=== PATIENT | male | born 1960 | race American Indian/Alaskan Native ===

== ENCOUNTER 2018-12-05 14:21 | Emergency (ER) | payer SELFPAY ==
--- NOTE | 2018-12-05 14:44 | Event Note ---
ED Screening Note ED Screening Note: pt presents with high blood pressure pt states that he has not had his blood pressure medication in 2 years pt believes he was previously on amlodipine 10 mg pt denies any MABRY, vision changes, numbness, weakness This initial assessment/diagnostic orders/clinical plan/treatment(s) is/are subject to change based on patients health status, clinical progression and re- assessment by fellow clinical providers in the ED. Further treatment and workup at subsequent clinical providers discretion. Patient/guardian urged not to elope from the ED as their condition may be serious if not clinically assessed and managed.
--- NOTE | 2018-12-05 16:18 | Emergency Department Report ---
ED General Adult HPI - General Chief complaint: High BP Stated complaint: HBP Time Seen by Provider: 12/05/18 14:40 Source: patient Mode of arrival: Ambulatory Limitations: No Limitations - History of Present Illness Initial comments: Mr. Swenson is a very pleasant 58-year-old male with history of hypertension for several years. He has been unemployed without healthcare. Consequently he has been without antihypertensive medication in quite some time. He formerly took amlodipine. He has a new job at [employer]. During employment physical, Blood pressure was elevated, the readings 186/120, 178/112. He is currently symptom-free. He requires a letter of treatment, recommendation and documentation for clearance to go for with employment process. -: unknown (has not taken medication for blood pressure in over 10 years) Consistency: other (has not taken blood pressure medication in several years.) Improves with: none Worsens with: none Associated Symptoms: denies other symptoms - Related Data Previous Rx's Medication Instructions Recorded Last Taken Type amLODIPine [Norvasc] 10 mg PO DAILY 90 Days #90 tab 12/05/18 Unknown Rx hydroCHLOROthiazide [HCTZ] 25 mg PO QDAY 90 Days #90 tablet 12/05/18 Unknown Rx Allergies Allergy/AdvReac Type Severity Reaction Status Date / Time No Known Allergies Allergy Unverified 12/05/18 14:25 ED Review of Systems ROS: Stated complaint: HBP Other details as noted in HPI Comment: All other systems reviewed and negative Constitutional: denies: fever, malaise Respiratory: denies: cough Cardiovascular: denies: chest pain Gastrointestinal: denies: abdominal pain ED Past Medical Hx - Past Medical History Previous Medical History?: Yes Hx Hypertension: Yes - Surgical History Past Surgical History?: No - Social History Smoking Status: Current Every Day Smoker Substance Use Type: None - Medications Home Medications: Home Medications Medication Instructions Recorded Confirmed Last Taken Type amLODIPine [Norvasc] 10 mg PO DAILY 90 Days #90 tab 12/05/18 Unknown Rx hydroCHLOROthiazide [HCTZ] 25 mg PO QDAY 90 Days #90 tablet 12/05/18 Unknown Rx ED Physical Exam - General Limitations: No Limitations General appearance: alert, in no apparent distress - Head Head exam: Present: atraumatic, normocephalic - Eye Eye exam: Present: normal appearance - ENT ENT exam: Present: mucous membranes moist - Neck Neck exam: Present: normal inspection, full ROM - Respiratory Respiratory exam: Present: normal lung sounds bilaterally. Absent: respiratory distress, wheezes, rales, rhonchi - Cardiovascular Cardiovascular Exam: Present: regular rate, normal rhythm, normal heart sounds. Absent: systolic murmur, diastolic murmur, rubs, gallop - GI/Abdominal GI/Abdominal exam: Present: soft, normal bowel sounds. Absent: distended, tenderness, guarding, rebound - Extremities Exam Extremities exam: Present: normal inspection - Back Exam Back exam: Present: normal inspection - Neurological Exam Neurological exam: Present: alert, oriented X3 - Psychiatric Psychiatric exam: Present: normal affect, normal mood - Skin Skin exam: Present: warm, dry, intact, normal color. Absent: rash ED Course Vital Signs 12/05/18 14:41 Temperature 97.9 F Pulse Rate 92 H Respiratory 18 Rate Blood Pressure 190/129 O2 Sat by Pulse 98 Oximetry ED Medical Decision Making - Medical Decision Making Mr. Swenson is a very pleasant gentleman who presents with hypertensive urgency, asymptomatic. I have prescribed amlodipine and hydrochlorothiazide. I also faxed letter to employee health services of his new employer completed with treatment recommendations and clearance for employment. Critical care attestation.: If time is entered above; I have spent that time in minutes in the direct care of this critically ill patient, excluding procedure time. ED Disposition Clinical Impression: Asymptomatic hypertensive urgency Disposition: DC-01 TO HOME OR SELFCARE Is pt being admited?: No Does the pt Need Aspirin: No Condition: Stable Instructions: Hypertension (ED) Prescriptions: hydroCHLOROthiazide [HCTZ] 25 mg PO QDAY 90 Days #90 tablet amLODIPine [Norvasc] 10 mg PO DAILY 90 Days #90 tab Referrals: GIANFRANCO FERNANDES MD [Primary Care Provider] - 3-5 Days
[2018-12-05] MEDS ORDERED: NORMODYNE PO ONE (16:29)
[2018-12-05] MEDS ORDERED: CATAPRES PO ONE (17:14)
[2018-12-05 18:13] VITALS: BP 147/100
== END 2018-12-05 18:17 | disposition home or self-care (01) ==
LOC: ED 14:21
DX: I16.0 Hypertensive urgency (principal); I10 Essential (primary) hypertension; F17.200 Nicotine dependence, unspecified, uncomplicated; Z79.899 Other long term (current) drug therapy

== ENCOUNTER 2019-06-05 12:30 | Observation (INO) | payer OTHER ==
--- NOTE | 2019-06-05 13:14 | Emergency Department Report ---
Blank Doc - Documentation Documentation: 58-year-old male that presents with epigastric pain with chest pains. Stated has sensation of foreign body in the chest. This initial assessment/diagnostic orders/clinical plan/treatment(s) is/are subject to change based on patient's health status, clinical progression and re- assessment by fellow clinical providers in the ED. Further treatment and workup at subsequent clinical providers discretion. Patient/guardians urged not to elope from the ED as their condition may be serious if not clinically assessed and managed. Initial orders include: 1- Patient sent to MAIN ED for further evaluation and treatment 2- labs 3- EKG
--- NOTE | 2019-06-05 14:17 | XRay Report ---
CHEST 2 VIEWS INDICATION: Chest Pain. COMPARISON: none FINDINGS: Support devices: None. Heart: Within normal limits. Lungs/pleura: No acute air space or interstitial disease. No pneumothorax. Additional findings: None. IMPRESSION: No acute findings. Signer Name: Edwar Messina Jr, MD Signed: 06/05/2019 2:12 PM Workstation Name: [id number]
--- NOTE | 2019-06-05 14:18 | XRay Report ---
SOFT TISSUE NECK HISTORY: Pain. Rule out foreign body. COMPARISON: None. TECHNIQUE: AP and lateral view(s) of the neck obtained. FINDINGS: Epiglottis: No significant abnormality. Airway: No significant abnormality. Retropharyngeal soft tissues: No significant abnormality. Bones: Degenerative disc disease with large anterior osteophytes at C5-6, C6-7 and C7-T1. The osteoph ytes are large enough at C5-6 to possibly impair swallowing. Additional findings: No foreign body. IMPRESSION: 1. No foreign body. 2. Degenerative disc disease with large anterior osteophytes. Osteophytes at C5-6 are large enough to possibly impair swallowing. Signer Name: Duane Miller MD Signed: 06/05/2019 2:13 PM Workstation Name: [id number]
[2019-06-05 14:32] LABS: Basophils % (Auto) 0.2 % (0.0-1.8); Eosinophils # (Auto) 0.1 K/mm3 (0.0-0.4); Eosinophils % (Auto) 1.3 % (0.0-4.3); Hematocrit 38.5 % (35.5-45.6); Lymphocytes # (Auto) 1.6 K/mm3 (1.2-5.4); Lymphocytes % (Auto) 29.6 % (13.4-35.0); Mean Corpuscular HGB Conc 34 % (32-34); Mean Corpuscular Volume 81 fl (84-94); Monocytes # (Auto) 0.4 K/mm3 (0.0-0.8); Monocytes % (Auto) 7.4 % (0.0-7.3); Platelet Count 265 K/mm3 (140-440); Red Blood Count 4.75 M/mm3 (3.65-5.03); Red Cell Distribution Width 14.1 % (13.2-15.2)
[2019-06-05 15:12] LABS: Alanine Aminotransferase 10 units/L (7-56); Albumin 4.3 g/dL (3.9-5); BUN/Creatinine Ratio 11; Blood Urea Nitrogen 15 mg/dL (9-20); Calcium 9.3 mg/dL (8.4-10.2); Hemolysis Index 8
[2019-06-05 15:23] LABS: LDL Cholesterol,Direct 139 mg/dL (50-130)
[2019-06-05 15:50] LABS: Chol/HDL Ratio 4.24 %; HDL Cholesterol 49 mg/dL (40-59)
[2019-06-05] MEDS ORDERED: ASPIRIN 325 MG TAB PO ONE (17:26)
--- NOTE | 2019-06-05 17:31 | History and Physical Report ---
History of Present Illness Chief complaint: I am having chest pain History of present illness: 58 YO Male with HTN, Nicotine Dependence, Obesity, Medication Noncompliance presents to ED for evaluation. Patient states that he experienced pain in his chest over the past 3 days with worsening symptoms over the past 1 day. Patient states that his pain is 46/10, initially intermittent with increasing frequency over the past 1 day. Patient states that pain is substernal, localized to the left chest, nonradiating, sharp, worsened with exertion, relieved with rest. Patient denies fever, chills, shortness of breath, diaphoresis, productive cough, recent ill contacts. Patient transferred ported to [facility] via private vehicle. Patient seen and evaluated in the emergency department. Lab and imaging studies reviewed. Patient found to have elevated troponin consistent with NSTEMI type II, as well as symptoms consistent with diastolic CHF. Patient placed in observation status and admitted to telemetry for further cardiac work- up. Cardiology consult placed in ED. no prior admission for review. All medication listed at time of admission has been reconciled. Past History Past Medical History: hypertension, other (See HPI) Past Surgical History: No surgical history, Other (Reviewed) Social history: single. denies: smoking, alcohol abuse Family history: hypertension Medications and Allergies Allergies Allergy/AdvReac Type Severity Reaction Status Date / Time No Known Allergies Allergy Unverified 12/05/18 14:25 Home Medications Medication Instructions Recorded Confirmed Last Taken Type amLODIPine 10 mg PO DAILY 90 Days #90 tab 12/05/18 Unknown Rx hydroCHLOROthiazide [HCTZ] 25 mg PO QDAY 90 Days #90 tablet 12/05/18 Unknown Rx Review of Systems Constitutional: no weight loss, no weight gain, no fever, no chills Ears, nose, mouth and throat: no ear pain, no ear discharge, no tinnitis, no decreased hearing, no nose pain, no nasal discharge Cardiovascular: chest pain, dyspnea on exertion, decreased exercise tolerance, no orthopnea, no palpitations, no rapid/irregular heart beat Respiratory: no cough, no cough with sputum, no excessive sputum, no hemoptysis Gastrointestinal: no nausea, no vomiting, no diarrhea, no constipation Genitourinary Male: no hematuria, no flank pain, no discharge, no urinary frequency, no urinary hesitancy Rectal: no pain, no incontinence, no bleeding Musculoskeletal: no neck stiffness, no neck pain, no shooting arm pain, no arm numbness/tingling Integumentary: no rash, no pruritis, no redness, no sores, no wounds Neurological: no paralysis, no weakness, no parathesias, no numbness, no tin gling, no syncope Psychiatric: no anxiety, no memory loss, no change in sleep habits, no insomnia, no hypersomnia, no change in appetite Endocrine: no cold intolerance, no excessive thirst, no polydipsia, no polyuria, no excessive sweating Hematologic/Lymphatic: no easy bruising, no easy bleeding Allergic/Immunologic: no wheezing Exam - Constitutional Vitals: Temp Pulse Resp BP Pulse Ox 98 F 76 20 194/119 99 06/05/19 13:13 06/05/19 13:13 06/05/19 13:13 06/05/19 13:13 06/05/19 13:13 General appearance: Present: no acute distress, well-nourished - EENT Eyes: Present: PERRL ENT: hearing intact, clear oral mucosa - Neck Neck: Present: supple, normal ROM - Respiratory Respiratory effort: normal Respiratory: bilateral: CTA - Cardiovascular Heart Sounds: Present: S1 & S2. Absent: rub, click - Extremities Extremities: pulses symmetrical, No edema Peripheral Pulses: within normal limits - Abdominal General gastrointestinal: Present: soft, non-tender, non-distended, normal bowel sounds Male genitourinary: Present: normal - Integumentary Integumentary: Present: clear, warm, dry - Musculoskeletal Musculoskeletal: gait normal, strength equal bilaterally - Psychiatric Psychiatric: appropriate mood/affect, intact judgment & insight - Neurologic Neurologic: CNII-XII intact, moves all extremities Results - Labs CBC & Chem 7: 06/05/19 14:03 06/05/19 14:03 Labs: Abnormal lab results 06/05/19 06/05/19 Range/Units 14:03 14:03 MCV 81 L (84-94) fl MCH 27 L (28-32) pg [place] % (Auto) 7.4 H (0.0-7.3) % Troponin T 0.059 H (0.00-0.029) ng/mL Triglycerides 264 H (2-149) mg/dL Cholesterol 208 H (50-199) mg/dL LDL Cholesterol Direct 139 H (50-130) mg/dL Assessment and Plan - Patient Problems (1) Angina at rest Current Visit: Yes Status: Acute Plan to address problem: Serial cardiac enzymes, EKG, cardiology team consulted in ED, further testing as per cardiology team. Submental oxygen, morphine, nitro, aspirin (2) Diastolic CHF Current Visit: Yes Status: Acute Qualifiers: Heart failure chronicity: acute Qualified Code(s): I50.31 - Acute diastolic (congestive) heart failure Plan to address problem: Strict I's/O, monitor blood pressure every shift, afterload reduction, submental oxygen, daily weight, BNP, echo. (3) NSTEMI (non-ST elevated myocardial infarction) Current Visit: Yes Status: Acute Plan to address problem: Cardiology consulted in ED, serial cardiac enzymes, EKG, blood pressure control, afterload reduction, pending further cardiac work-up. (4) Noncompliance Current Visit: Yes Status: Acute Plan to address problem: Patient counseled regarding noncompliance with medication. Patient acknowledges risk of worsening symptoms, cardiac decompensation, and even . Patient agrees to be compliant with his antihypertensive therapy moving forward. (5) DVT prophylaxis Current Visit: Yes Status: Acute Plan to address problem: SCD to bilateral lower extremities while in bed, patient is ambulatory.
[2019-06-05] MEDS ORDERED: ONDANSETRON 4 MG/2 ML INJ IV PRN (17:32)
[2019-06-05] MEDS ORDERED: ALBUTEROL 2.5 MG/3 ML NEBU IH PRN (17:32)
--- NOTE | 2019-06-05 17:35 | Emergency Department Report ---
ED Chest Pain HPI - General Chief Complaint: Sore Throat Stated Complaint: ESOPHAGEAL PAIN Time Seen by Provider: 06/05/19 13:12 Source: patient Mode of arrival: Ambulatory Limitations: No Limitations - History of Present Illness Initial Comments: This is a pleasant 58-year-old male who presents the emergency department with a chief complaint of substernal chest pain that started 3 days ago. Patient reports that this feels like when you swallows something and it goes down the wrong tube but it has been constant and has not been associated with swallowing. Pain is an 8 out of 10. He denies any associated shortness of breath, nausea, radiating pain into his back or his arms. Denies pleuritic pain. Denies hemoptysis. He has a past medical history of hypertension which she has been prescribed medication in the past but he has been noncompliant with it as well as smoking one half to a pack of cigarettes per day. He denies any family history of sudden cardiac or known cardiac disease, thromboembolic disease. He denies any recent travel, fever, chills, night sweats, headache, dizziness, blurry vision or any other associated symptoms. Patient does not currently have a primary care doctor. - Related Data Previous Rx's Medication Instructions Recorded Last Taken Type amLODIPine 10 mg PO DAILY 90 Days #90 tab 12/05/18 Unknown Rx hydroCHLOROthiazide [HCTZ] 25 mg PO QDAY 90 Days #90 tablet 12/05/18 Unknown Rx Allergies Allergy/AdvReac Type Severity Reaction Status Date / Time No Known Allergies Allergy Unverified 12/05/18 14:25 Heart Score - HEART Score History: Slightly suspicious EKG: Non-specific Age: 45-65 Risk factors: > 3 risk factors or hx of atherosclerotic disease Troponin: 1-3x normal limit HEART Score: 5 ED Review of Systems ROS: Stated complaint: ESOPHAGEAL PAIN Other details as noted in HPI Comment: All other systems reviewed and negative Constitutional: denies: chills, fever Eyes: denies: eye pain, eye discharge, vision change ENT: denies: ear pain, throat pain Respiratory: denies: cough, shortness of breath, wheezing Cardiovascular: as per HPI, chest pain. denies: palpitations Endocrine: no symptoms reported Gastrointestinal: denies: abdominal pain, nausea, diarrhea Genitourinary: denies: urgency, dysuria Musculoskeletal: denies: back pain, joint swelling, arthralgia Skin: denies: rash, lesions Neurological: denies: headache, weakness, paresthesias Psychiatric: denies: anxiety, depression Hematological/Lymphatic: denies: easy bleeding, easy bruising ED Past Medical Hx - Past Medical History Previous Medical History?: Yes Hx Hypertension: Yes - Surgical History Past Surgical History?: No - Social History Smoking Status: Current Every Day Smoker Substance Use Type: Marijuana - Medications Home Medications: Home Medications Medication Instructions Recorded Confirmed Last Taken Type amLODIPine 10 mg PO DAILY 90 Days #90 tab 12/05/18 Unknown Rx hydroCHLOROthiazide [HCTZ] 25 mg PO QDAY 90 Days #90 tablet 12/05/18 Unknown Rx ED Physical Exam - General Limitations: No Limitations General appearance: alert, in no apparent distress - Head Head exam: Present: atraumatic, normocephalic - Eye Eye exam: Present: normal appearance, PERRL, EOMI Pupils: Present: normal accommodation - ENT ENT exam: Present: normal exam, normal orophraynx, mucous membranes moist, TM's normal bilaterally - Neck Neck exam: Present: normal inspection, full ROM. Absent: tenderness, meningismus - Respiratory Respiratory exam: Present: normal lung sounds bilaterally. Absent: respiratory distress, wheezes, rales, rhonchi, stridor, chest wall tenderness - Cardiovascular Cardiovascular Exam: Present: regular rate, normal rhythm, normal heart sounds. Absent: systolic murmur, diastolic murmur, rubs, gallop - GI/Abdominal GI/Abdominal exam: Present: soft, normal bowel sounds. Absent: distended, tenderness, guarding, rebound, rigid - Rectal Rectal exam: Present: deferred - Extremities Exam Extremities exam: Present: normal inspection, full ROM, normal capillary refill. Absent: tenderness, calf tenderness (Negative Homans sign bilaterally) - Back Exam Back exam: Present: normal inspection - Neurological Exam Neurological exam: Present: alert, oriented X3 - Psychiatric Psychiatric exam: Present: normal affect, normal mood - Skin Skin exam: Present: warm, dry, intact, normal color. Absent: rash ED Course Vital Signs 06/05/19 13:13 Temperature 98 F Pulse Rate 76 Respiratory 20 Rate Blood Pressure 194/119 O2 Sat by Pulse 99 Oximetry - Consultations Consultation #1: 06/05/19 17:[address] Alonso who agreed to see the patient in consult and plans to do a Lexiscan stress test in the morning. Consultation #2: 06/05/19 17:[address] Garcia with internal medicine who agreed to admit the patient to the hospital and will place admission orders. MONTY score - Omnty Score Age > 65: (0) No Aspirin use within the Past 7 Days: (0) No 3 or more CAD Risk Factors: (1) Yes 2 or more Angina events in past 24 hrs: (1) Yes Known CAD with more than 50% Stenosis: (0) No Elevated Cardiac Markers: (1) Yes ST Deviation Greater than 0.5mm: (0) No MONTY Score: 3 ED Medical Decision Making - Lab Data Result diagrams: 06/05/19 14:03 06/05/19 14:03 Lab Results 06/05/19 06/05/19 Range/Units 14:03 14:03 WBC 5.3 (4.5-11.0) K/mm3 RBC 4.75 (3.65-5.03) M/mm3 Hgb 13.0 (11.8-15.2) gm/dl Hct 38.5 (35.5-45.6) % MCV 81 L (84-94) fl MCH 27 L (28-32) pg MCHC 34 (32-34) % RDW 14.1 (13.2-15.2) % Plt Count 265 (140-440) K/mm3 Lymph % (Auto) 29.6 (13.4-35.0) % [place] % (Auto) 7.4 H (0.0-7.3) % Eos % (Auto) 1.3 (0.0-4.3) % Baso % (Auto) 0.2 (0.0-1.8) % Lymph # 1.6 (1.2-5.4) K/mm3 [place] # 0.4 (0.0-0.8) K/mm3 Eos # 0.1 (0.0-0.4) K/mm3 Baso # 0.0 (0.0-0.1) K/mm3 Seg Neutrophils % 61.5 (40.0-70.0) % Seg Neutrophils # 3.3 (1.8-7.7) K/mm3 Sodium 141 (137-145) mmol/L Potassium 4.1 (3.6-5.0) mmol/L Chloride 103.1 (98-107) mmol/L Carbon Dioxide 24 (22-30) mmol/L Anion Gap 18 mmol/L BUN 15 (9-20) mg/dL Creatinine 1.4 (0.8-1.5) mg/dL Estimated GFR > 60 ml/min BUN/Creatinine Ratio 11 % Glucose 100 (75-100) mg/dL Calcium 9.3 (8.4-10.2) mg/dL Total Bilirubin 0.20 (0.1-1.2) mg/dL AST 15 (5-40) units/L ALT 10 (7-56) units/L Alkaline Phosphatase 54 (35-129) units/L Troponin T 0.059 H (0.00-0.029) ng/mL Total Protein 7.8 (6.3-8.2) g/dL Albumin 4.3 (3.9-5) g/dL Albumin/Globulin Ratio 1.2 % Triglycerides 264 H (2-149) mg/dL Cholesterol 208 H (50-199) mg/dL LDL Cholesterol Direct 139 H (50-130) mg/dL HDL Cholesterol 49 (40-59) mg/dL Cholesterol/HDL Ratio 4.24 % - EKG Data -: EKG Interpreted by Me (And reviewed with ER physician Dr. Rosario) EKG shows normal: sinus rhythm Rate: normal - EKG Data When compared to previous EKG there are: previous EKG unavailable 06/05/19 17:38 Sinus rhythm rate of 69, no STEMI, left ventricular hypertrophy, normal axis, no ectopy - Radiology Data Radiology results: report reviewed XRay Report Signed Patient: KIMMIE ALEXANDER MR#: [id number] 111 : 1960 Acct:[id number] Age/Sex: 58 / M ADM Date: 06/05/19 Loc: ED Attending Dr: Ordering Physician: SAM SCHAFFER NP Date of Service: 06/05/19 Procedure(s): XR chest routine 2V Accession Number(s): [id number] cc: SAM SCHAFFER NP Fluoro Time In Minutes: CHEST 2 VIEWS INDICATION: Chest Pain. COMPARISON: none FINDINGS: Support devices: None. Heart: Within normal limits. Lungs/pleura: No acute air space or interstitial disease. No pneumothorax. Additional findings: None. IMPRESSION: No acute findings. Signer Name: Edwar Messina Jr, MD Signed: 06/05/2019 2:12 PM Workstation Name: [id number] Transcribed By: TTR Dictated By: EDWAR MESSINA JR, MD Electronically Authenticated By: EDWAR MESSINA JR, MD Signed Date/Time: 06/05/19 1412 XRay Report Signed Patient: KIMMIE ALEXANDER MR#: [id number] 111 : 1960 Acct:[id number] Age/Sex: 58 / M ADM Date: 06/05/19 Loc: ED Attending Dr: Ordering Physician: SAM SCHAFFER NP Date of Service: 06/05/19 Procedure(s): XR neck soft tissue Accession Number(s): [id number] cc: SAM SCHAFFER NP Fluoro Time In Minutes: SOFT TISSUE NECK HISTORY: Pain. Rule out foreign body. COMPARISON: None. TECHNIQUE: AP and lateral view(s) of the neck obtained. FINDINGS: Epiglottis: No significant abnormality. Airway: No significant abnormality. Retropharyngeal soft tissues: No significant abnormality. Bones: Degenerative disc disease with large anterior osteophytes at C5-6, C6-7 and C7-T1. The osteophytes are large enough at C5-6 to possibly impair swallowing. Additional findings: No foreign body. IMPRESSION: 1. No foreign body. 2. Degenerative disc disease with large anterior osteophytes. Osteophytes at C5- 6 are large enough to possibly impair swallowing. Signer Name: Thelma Euceda MD Signed: 06/05/2019 2:13 PM Workstation Name: [id number] Transcribed By: REF Dictated By: THELMA EUCEDA MD Electronically Authenticated By: THELMA EUCEDA MD Signed Date/Time: 06/05/19 1413 - Medical Decision Making Patient presented the emergency department with "esophageal pain." Patient describes this is constant pain behind his sternum with no change with swallowing, exertion or associated shortness of breath. Patient has a low Wells risk for PE with no tachycardia or hypoxia making PE less likely. Patient had no lower extremity edema and negative Homans sign and no clinical symptoms of a DVT. Patient EKG showed LVH with no acute ST or T wave changes and no STEMI. Reviewed this with attending physician. Labs returned showing an elevation of the patient's cholesterol, the troponin was slightly elevated. Discussed with cardiology who agreed to see the patient in consult and will do a stress test tomorrow. Discussed with internal medicine who agreed to bring the patient in. The patient's heart score was a 5. Patient had no tearing or ripping pain to the back with no widening of the mediastinum and normal equal radial pulses making an acute aortic dissection unlikely. He had no findings of pneumonia or pneumothorax on exam. The abdominal exam was benign I do not think this is a referred pain from the gallbladder or the stomach. The patient's blood pressure was significantly elevated at 190 systolic and this could be secondary to hypertensive urgency rather than ACS however we will trend the troponins and pat ient was given an aspirin in the emergency department. Patient and his at the bedside were agreeable to this plan and all their questions were answered. Discussed with attending who is also agreeable to this plan. - Differential Diagnosis Hypertensive urgency, ACS, PE, aortic dissection, pneumothorax Critical Care Time: Yes Critical care time in (mins) excluding proc time.: 32 Critical care attestation.: If time is entered above; I have spent that time in minutes in the direct care of this critically ill patient, excluding procedure time. Critical Care Time: 32 ED Disposition Clinical Impression: Elevated troponin, Nonspecific chest pain Disposition: DC-09 OP ADMIT IP TO THIS HOSP Is pt being admited?: Yes Does the pt Need Aspirin: Yes Condition: Fair Instructions: Chest Pain (ED) Referrals: PRIMARY CARE, [Primary Care Provider] - 3-5 Days Time of Disposition: 17:43
[2019-06-05] MEDS ORDERED: ASPIRIN 81 MG TAB CHEW PO STA (17:37)
[2019-06-05 20:10] LABS: Amphetamine Screen,Urine PRESUMPTIVE NEGATIVE; Benzodiazepines Screen,Urine PRESUMPTIVE NEGATIVE; Cocaine Screen,Urine PRESUMPTIVE NEGATIVE; Methadone Screen,Urine PRESUMPTIVE NEGATIVE; Opiate Screen,Urine PRESUMPTIVE NEGATIVE
[2019-06-05 20:21] LABS: Cannabinoid Screen,Urine PRESUMPTIVE POSITIVE
[2019-06-05] MEDS: NITROGLYCERIN 0.4 MG TAB SUBL SL PRN (21:52)
[2019-06-05] MEDS: FAMOTIDINE 10 MG TAB PO SCH (21:53)
[2019-06-05] MEDS ORDERED: PRAVASTATIN 20 MG TAB PO SCH (22:00)
[2019-06-05] MEDS: hydrALAZINE 20 MG/1 ML INJ IV PRN (22:59)
[2019-06-06] MEDS: NITROGLYCERIN 0.4 MG TAB SUBL SL PRN ×2 (00:05→00:26)
[2019-06-06] MEDS: hydrALAZINE 20 MG/1 ML INJ IV PRN (04:44)
[2019-06-06] MEDS ORDERED: MORPHINE 2 MG/1 ML INJ IV ONE (05:25)
[2019-06-06] MEDS ORDERED: amLODIPine 10 MG TAB PO SCH (10:00)
[2019-06-06] MEDS ORDERED: hydroCHLOROthiazide 25 MG TAB PO SCH (10:00)
[2019-06-06] MEDS ORDERED: ACETAMINOPHEN 325 MG TAB PO ONE (11:15)
[2019-06-06] MEDS ORDERED: ACETAMINOPHEN 325 MG TAB ONE (11:24)
[2019-06-06] MEDS ORDERED: REGADENOSON 0.4 MG/5 ML INJ IV ONE (11:39)
--- NOTE | 2019-06-06 11:43 | Consultation ---
History of Present Illness Consult date: 06/06/19 Requesting physician: SAMMY MORALES Consult reason: elevated troponin History of present illness: Pt is a 58 y.o. AA male with a past medical hx of HTN and tobacco use. He is previously unknown to our practice. Pt presented with c/o intermittent "squeezing" CP x 3-4 days. He describes his pain as feeling like food is stuck in his throat, although the pain is unrelated to eating or drinking. He states his pain in non-radiating and is relieved by rest and deep breaths. Pt denies hx of reflux. Pt denies SOB, cough, fever/chills, abd pain, and N/V. Trop elevated 0.059 -> 0.070. ECG shows NSR with no evidence of acute ischemic changes. CXR shows no acute findings. Past History Past Medical History: hypertension, other Past Surgical History: No surgical history Social history: single, smoking (tobacco x 1/2 PPD and marijuana). denies: alcohol abuse, prescription drug abuse Family history: hypertension Medications and Allergies Allergies Allergy/AdvReac Type Severity Reaction Status Date / Time No Known Allergies Allergy Unverified 12/05/18 14:25 Home Medications Medication Instructions Recorded Confirmed Last Taken Type Pantoprazole [Protonix] 40 mg PO QDAY #30 tablet 06/06/19 Unknown Rx amLODIPine 10 mg PO DAILY 90 Days #90 tab 06/06/19 Unknown Rx hydroCHLOROthiazide [HCTZ] 25 mg PO QDAY 90 Days #90 tablet 06/06/19 Unknown Rx Active Meds: Active Medications Albuterol (Proventil) 2.5 mg IH Q4HRT PRN PRN Reason: Shortness Of Breath Amlodipine Besylate (Amlodipine) 10 mg PO DAILY KENNETH Famotidine (Pepcid) 10 mg PO BID KENNETH Last Admin: 06/05/19 21:53 Dose: 10 mg Documented by: Hydralazine HCl (Apresoline) 10 mg IV Q6HR PRN PRN Reason: Hypertension Last Admin: 06/06/19 04:44 Dose: 10 mg Documented by: Hydrochlorothiazide (Hctz) 25 mg PO QDAY KENNETH Nitroglycerin (Nitrostat) 0.4 mg SL Q5M PRN PRN Reason: Chest Pain Last Admin: 06/06/19 00:26 Dose: 0.4 mg Documented by: Ondansetron HCl (Zofran) 4 mg IV Q8H PRN PRN Reason: Nausea And Vomiting Last Admin: 06/06/19 06:44 Dose: 4 mg Documented by: Pravastatin Sodium (Pravachol) 20 mg PO QHS [facility] Last Admin: 06/05/19 21:53 Dose: 20 mg Documented by: Sodium Chloride (Sodium Chloride Flush Syringe 10 Ml) 10 ml IV BID [facility] Last Admin: 06/05/19 21:56 Dose: 10 ml Documented by: Sodium Chloride (Sodium Chloride Flush Syringe 10 Ml) 10 ml IV PRN PRN PRN Reason: LINE FLUSH Review of Systems Constitutional: no weight loss, no weight gain, no fever, no chills, no sweats Ears, nose, mouth and throat: no ear pain, no nose pain, no nasal congestion, no mouth pain, no dysphagia Cardiovascular: chest pain, no orthopnea, no palpitations, no rapid/irregular heart beat, no edema, no syncope, no lightheadedness, no shortness of breath, no dyspnea on exertion Respiratory: no cough, no shortness of breath, no dyspnea on exertion Gastrointestinal: no abdominal pain, no nausea, no vomiting, no diarrhea, no constipation Genitourinary Male: no dysuria, no flank pain Musculoskeletal: no neck stiffness, no neck pain, no muscle weakness, no muscle cramps Integumentary: no rash, no wounds Neurological: no head injury, no paralysis, no weakness, no parathesias, no numbness, no tingling, no seizures, no syncope, no vertigo, no headaches Endocrine: no cold intolerance, no heat intolerance Hematologic/Lymphatic: no easy bruising, no easy bleeding Allergic/Immunologic: no urticaria Physical Examination Last Vital Signs Temp 98.5 F 06/06/19 10:02 Pulse 73 06/06/19 10:22 Resp 16 06/06/19 10:02 BP 165/108 06/06/19 10:02 Pulse Ox 94 06/06/19 10:02 General appearance: no acute distress HEENT: Positive: EOMI, Normocephaly, Mucus Membranes Moist Neck: Positive: neck supple, trachea midline Cardiac: Positive: Reg Rate and Rhythm, S1/S2 Lungs: Positive: clear to auscultation, No Wheeze, Rales, Rhonchi Neuro: Positive: Grossly Intact, Motor Function Intact, Coordination Normal, Sensory Function Intact Abdomen: Positive: Soft, Active Bowel Sounds. Negative: Tender Skin: Negative: Rash, Wound Musculoskeletal: No Pain Extremities: Present: upper extr. pulses, lower extr. pulses. Absent: edema Results 06/05/19 14:03 06/05/19 14:03 Cardiac Enzymes 06/05/19 Range/Units 14:03 AST 15 (5-40) units/L Lipids 06/05/19 Range/Units 14:03 Triglycerides 264 H (2-149) mg/dL Cholesterol 208 H (50-199) mg/dL HDL Cholesterol 49 (40-59) mg/dL Cholesterol/HDL Ratio 4.24 % CBC 06/05/19 Range/Units 14:03 WBC 5.3 (4.5-11.0) K/mm3 RBC 4.75 (3.65-5.03) M/mm3 Hgb 13.0 (11.8-15.2) gm/dl Hct 38.5 (35.5-45.6) % Plt Count 265 (140-440) K/mm3 Lymph # 1.6 (1.2-5.4) K/mm3 [place] # 0.4 (0.0-0.8) K/mm3 Eos # 0.1 (0.0-0.4) K/mm3 Baso # 0.0 (0.0-0.1) K/mm3 Comprehensive Metabolic Panel 06/05/19 Range/Units 14:03 Sodium 141 (137-145) mmol/L Potassium 4.1 (3.6-5.0) mmol/L Chloride 103.1 (98-107) mmol/L Carbon Dioxide 24 (22-30) mmol/L BUN 15 (9-20) mg/dL Creatinine 1.4 (0.8-1.5) mg/dL Glucose 100 (75-100) mg/dL Calcium 9.3 (8.4-10.2) mg/dL AST 15 (5-40) units/L ALT 10 (7-56) units/L Alkaline Phosphatase 54 (35-129) units/L Total Protein 7.8 (6.3-8.2) g/dL Albumin 4.3 (3.9-5) g/dL - Imaging and Cardiology EKG: report reviewed, image reviewed - EKG Interpretation EKG: no acute changes EKG interpretations - Telemetry EKG Rhythm: Sinus Rhythm - EKG Sinus rhythms and dysrhythmias: sinus rhythm Assessment and Plan S/p Lexiscan MPI stress test this AM - negative. Optimize BP - initiate Lopressor. Continue Amlodipine and HCTZ. Lipid panel reviewed - continue statin therapy. Tobacco cessation encouraged. Currently stable cardiac status. Pt may discharge from cardiac standpoint. Recommend f/u in our office with Dr. Henao within 1-2 weeks ([phone]). The patient has been seen in conjunction with Dr. Henao, who agrees with the assessment and plan of care. - Patient Problems (1) Chest pain Current Visit: Yes Status: Resolved (2) Elevated troponin Current Visit: Yes Status: Acute (3) HTN (hypertension) Current Visit: Yes Status: Chronic Qualifiers: Hypertension type: essential hypertension Qualified Code(s): I10 - Essential (primary) hypertension (4) Hyperlipidemia Current Visit: Yes Status: Chronic Qualifiers: Hyperlipidemia type: mixed hyperlipidemia Qualified Code(s): E78.2 - Mixed hyperlipidemia (5) Tobacco use Current Visit: Yes Status: Chronic
[2019-06-06] MEDS: FAMOTIDINE 10 MG TAB PO SCH (12:13)
[2019-06-06] MEDS ORDERED: ACETAMINOPHEN 325 MG TAB PO PRN (12:22)
[2019-06-06 13:01] VITALS: BP 182/104
--- NOTE | 2019-06-06 14:16 | Discharge Summary ---
Providers - Providers Date of Admission: 06/05/19 17:30 Date of discharge: 06/06/19 Attending physician: LISA EARL 06/05/19 Consult to Cardiac Rehabilitation [CONS] Routine Reason For Exam: Phase I 06/05/19 17:28 Consult to Physician [CONS] Stat Comment: LIV LOU W/DR GOLDMAN @1753 Consulting Provider: JOHN NIEVES Physician Instructions: Reason For Exam: Chest pain, elevated troponin Primary care physician: JANITORIAL CLEANER Hospitalization Reason for admission: cp Condition: Fair Hospital course: 58-year-old male presented through the emergency department with past medical history of hypertension and tobacco use complaining of chest pain. Patient describes pain as reflux associated with swallowing. However, patient did have an elevated troponin and thus was admitted for further work-up and to rule out cardiac ischemia. Chest x-ray showed no acute findings. Neck x-ray was un remarkable. Patient underwent Lexiscan that was found to be negative. Etiology of chest pain is likely GERD. Patient will be discharged with PPI patient will follow-up with GI as an outpatient. Dedicated discharge time 35 minutes. Disposition: DC- TO HOME OR SELFCARE Time spent for discharge: 35 - Discharge Diagnoses (1) GERD (gastroesophageal reflux disease) Status: Acute (2) Chest pain Status: Acute (3) Elevated troponin Status: Acute (4) HTN (hypertension) Status: Chronic Qualifiers: Hypertension type: essential hypertension Qualified Code(s): I10 - Essential (primary) hypertension Core Measure Documentation - Palliative Care Palliative Care/ Comfort Measures: Not Applicable - Core Measures Any of the following diagnoses?: none Exam - Constitutional Vitals: Temp Pulse Resp BP Pulse Ox 98.5 F 78 18 182/104 95 06/06/19 12:58 06/06/19 12:58 06/06/19 12:58 06/06/19 12:58 06/06/19 12:58 General appearance: Present: no acute distress, well-nourished - EENT Eyes: Present: PERRL ENT: hearing intact, clear oral mucosa - Neck Neck: Present: supple, normal ROM - Respiratory Respiratory effort: normal Respiratory: bilateral: CTA - Cardiovascular Heart Sounds: Present: S1 & S2. Absent: rub, click - Extremities Extremities: pulses symmetrical, No edema Peripheral Pulses: within normal limits - Abdominal General gastrointestinal: Present: soft, non-tender, non-distended, normal bowel sounds Male genitourinary: Present: normal - Integumentary Integumentary: Present: clear, warm, dry - Musculoskeletal Musculoskeletal: gait normal, strength equal bilaterally - Psychiatric Psychiatric: appropriate mood/affect, intact judgment & insight - Neurologic Neurologic: CNII-XII intact, moves all extremities Plan Activity: advance as tolerated Weight Bearing Status: Weight Bear as Tolerated Diet: regular Follow up with: PRIMARY CAREMD [Primary Care Provider] - 3-5 Days SAVANAH GRIFFIN MD [Staff Physician] - 7 Days Prescriptions: amLODIPine 10 mg PO DAILY 90 Days #90 tab hydroCHLOROthiazide [HCTZ] 25 mg PO QDAY 90 Days #90 tablet Pantoprazole [Protonix] 40 mg PO QDAY #30 tablet
[2019-06-06] MEDS ORDERED: METOPROLOL TARTRATE 25 MG TAB PO SCH (22:00)
--- NOTE | 2019-06-07 10:21 | Treadmill Report ---
NUCLEAR CARDIAC IMAGING REPORT INDICATION FOR PROCEDURE: Chest pain. Informed consent was obtained. Vasodilator stress was achieved with the intravenous administration of 0.4 mg of Lexiscan. Nuclear cardiac imaging was performed following the intravenous administration of technetium-99m Myoview. Gated SPECT imaging demonstrates a post-stress left ventricular ejection fraction of 54% with normal wall motion. Myocardial perfusion imaging demonstrates no significant cavity change between stress and rest. No significant stress induced perfusion defects were seen. Nuclear cardiac imaging demonstrates grossly normal left ventricular systolic function with no significant evidence of myocardial ischemia or necrosis. JOB# [id number] BRYuli/NTS
== END 2019-06-06 15:00 | disposition home or self-care (01) ==
LOC: ED 12:30 → 4A 17:30
PROVIDERS: ADMIT Internal Medicine; ATTEND Hospitalist
DX: I20.9 Angina pectoris, unspecified (principal); I11.0 Hypertensive heart disease with heart failure; I50.31 Acute diastolic (congestive) heart failure; I21.4 Non-ST elevation (NSTEMI) myocardial infarction; F32.9 Major depressive disorder, single episode, unspecified; R79.89 Other specified abnormal findings of blood chemistry; E66.9 Obesity, unspecified; K21.9 Gastro-esophageal reflux disease without esophagitis; F17.200 Nicotine dependence, unspecified, uncomplicated; Z91.19 Patient's noncompliance with other medical treatment and regimen; Z79.899 Other long term (current) drug therapy; Z68.31 Body mass index [BMI] 31.0-31.9, adult
CPT/HCPCS: 36415; 70360; 71046; 78452; 80053; 80061; 80307; 83880; 84484; 85025; 93005; 93010; 93017; 96374; 96375; 96376; 99291; A9270; A9502; G0378; J0360; J2270; J2405